=== PATIENT | female | born 1960 | race Asian ===

== ENCOUNTER → 2018-04-10 | Outpatient (CLI) | payer OTHER ==
[~2018-04-10] MED LIST: ASPECOTC PO; CLON0.5T9 PO; CRG3125 PO
--- NOTE | 2018-04-10 15:07 | DIAGNOSTIC IMAGING REPORT ---
LEFT SHOULDER 3 VIEWS CLINICAL HISTORY: Left shoulder pain. FINDINGS: 3 views of the left shoulder are obtained. No prior studies are available for comparison at the time of dictation. The skeletal structures are well mineralized. No fracture or dislocation is seen. The glenohumeral and acromioclavicular joints are preserved. The overlying soft tissues are within normal limits. The imaged left upper lobe lung parenchyma appears clear. IMPRESSION: No acute osseous abnormality is seen in the left shoulder. Electronically signed by: Sonido Uribe M.D. 04/10/2018 3:05 PM Dictated Date/Time: 04/10/2018 3:05 PM
== END | disposition home or self-care (01) ==
LOC: C.RADBC 14:30
PROVIDERS: ATTEND Family Medicine
DX: M25.512 Pain in left shoulder (principal)